=== PATIENT | male | born 1980 | race Caucasian/White ===

== ENCOUNTER → 2018-09-29 | Outpatient (RCR) | payer OTHER ==
--- NOTE | 2018-07-01 11:34 | OT INITIAL EVALUATION ---
SUBJECTIVE: Patient is a 37 year old left hand dominate male referred to OP OT services following extensive left wrist surgery on 05/19/2018 after a work related injury to the left wrist and forearm. The work-related injury occurred in May of 2017 where a 9,000# drill pipe fell onto the patient's left forearm and wrist. Patient has been treated by several providers over the last year and was able to receive surgery this past May for tendon and ligament repair with pinning. Patient was in a hard cast for 6 weeks and has been released to come to therapy. Hard cast was removed on 06/28/2018. Patient is wearing a soft cast. Patient is not to do any pushing or pulling with the left wrist. The area where the pin was removed was covered with a band aid, it looked dry with no visible drainage. Surgical site over the wrist appeared to be healed dry and intact with no drainage present. 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 Patient has not been released for any other treatment than to focus on range of motion of the left hand and wrist. Patient does have discomfort and pain during passive range of motion. Patient to benefit from OT services to help increase functional movement of the left hand in self cares. Short Term Goals 1.Patient will increase AROM of the left wrist extension by 30 degrees in order to complete self cares with the left hand. 2.Patient will increase AROM of the left wrist flexion by 30 degrees in order to complete self-cares with the left hand. 3.Patient will increase radial and ulnar deviation by 15 degrees in order to complete self care with the left hand. 4.Patient will report of a decrease in discomfort and pain of the left wrist to help with performing self cares. PLAN: Plan to see patient 2 times a week for 12 weeks to increase functional use of left hand and to improve independence with ADLs and IADLs and return to work. Plan of care to include ther ex, ther act, modalities-hot/cold pack, paraffin, fluidotherapy, ultrasound, e-stim, iontophoresis Thank you for this referral. If you have any questions, concerns, or comments about this report or plan, please contact me at [phone]. Sondra Gill MS, OTR/L Occupational Therapist Provider Signature Date MTDD
--- NOTE | 2018-07-28 14:46 | OT PROGRESS NOTE ---
SUBJECTIVE: Patient is a 37 year old left hand dominate male referred to OP OT services following extensive left wrist surgery on 05/19/2018 after a work related injury to the left wrist and forearm. The work-related injury occurred in May of 2017 where a 9,000# drill pipe fell onto the patient's left forearm and wrist. Patient has been treated by several providers over the last year and was able to receive surgery this past May for tendon and ligament repair with pinning. Patient has been treated in the clinic for 8 treatment sessions working on increasing AROM. Patient is reporting of pain along the incision spanning 2 inches across. Patient is also reporting of popping with wrist rotation. 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 Extension is returning slowly for movement. Pain has not decreased and is most likely interfering with ROM. Patient is working hard on improving AROM outside of the clinic and is very eager to return back to working. Short Term Goals 1.Patient will increase AROM of the left wrist extension by 30 degrees in order to complete self cares with the left hand. not met 2.Patient will increase AROM of the left wrist flexion by 30 degrees in order to complete self-cares with the left hand. partially met 3.Patient will increase radial and ulnar deviation by 15 degrees in order to complete self care with the left hand. met 4.Patient will report of a decrease in discomfort and pain of the left wrist to help with performing self cares. not met PLAN: Please advise on continuing to work on AROM and when to incorporate strengthening. Thank you for this referral. If you have any questions, concerns, or comments about this report or plan, please contact me at [phone]. Sondra Gill MS, OTR/L Occupational Therapist Provider Signature Date MTDD
--- NOTE | 2018-08-25 15:37 | OT PROGRESS NOTE ---
SUBJECTIVE: Patient is a 37 year old left hand dominate male referred to OP OT services following extensive left wrist surgery on 05/19/2018 after a work related injury to the left wrist and forearm. The work-related injury occurred in May of 2017 where a 9,000# drill pipe fell onto the patient's left forearm and wrist. Patient has been treated by several providers over the last year and was able to receive surgery this past May for tendon and ligament repair with pinning. Patient has been treated in the clinic for 14 treatment sessions working on increasing AROM with the addition of strengthening. Patient is reporting of pain along the incision spanning 2 inches across. 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 = 134# (Age/gender normative= 119.7#) Left=80# (Age/gender normative= 112.9#) Lateral Pinch Right = 31.3# (Age/gender normative= 26.1#) Left= 21.3# (Age/gender normative= 25.6#) 3 Point Pinch Right = 27# (Age/gender normative= 26.2#) Left= 17.3# (Age/gender normative= 25.9#) Sensation: reports that this is back to normal since his surgery Special Test: 9 Hole Peg Test (dexterity) Right= 28 seconds (Age/gender normative= 17.9 seconds) Left= 27seconds (Age/gender normative= 19.4 seconds) ASSESSMENT Patient has made gains in increasing AROM of the left wrist-AROM is close to what the right AROM presents with. Extension is returning slowly for movement. Working on strengthening of the left wrist. Patient can tolerate 10-25# depending on the exercise. Pain has not decreased and is most likely interfering with AROM and strength. Patient is working hard on improving AROM and strength outside of the clinic and is very eager to return back to working. Short Term Goals 1.Patient will increase AROM of the left wrist extension by 30 degrees in order to complete self cares with the left hand. not met 2.Patient will increase AROM of the left wrist flexion by 30 degrees in order to complete self-cares with the left hand. partially met 3.Patient will increase radial and ulnar deviation by 15 degrees in order to complete self care with the left hand. met 4.Patient will report of a decrease in discomfort and pain of the left wrist to help with performing self cares. not met 5. Patient will complete strengthening program. not met PLAN: Please advise on continuing to work on AROM and strengthening. Thank you for this referral. If you have any questions, concerns, or comments about this report or plan, please contact me at [phone]. Sondra Gill MS, OTR/L Occupational Therapist Provider Signature Date MTDD
--- NOTE | 2018-08-31 12:26 | OT PROGRESS NOTE ---
SUBJECTIVE: Patient is a 37 year old left hand dominate male referred to OP OT services following extensive left wrist surgery on 05/19/2018 after a work related injury to the left wrist and forearm. The work-related injury occurred in May of 2017 where a 9,000# drill pipe fell onto the patient's left forearm and wrist. Patient has been treated by several providers over the last year and was able to receive surgery this past May for tendon and ligament repair with pinning. Patient has been treated in the clinic for 15 treatment sessions working on increasing AROM with the addition of strengthening. Patient returned to clinic with updated order to complete strengthening and work hardening on the left hand. Progress note will be sent to surgeon per his request. 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 Focus will now be on strengthening and work hardening. Patient increased weight for lifting and carrying from 20-25# to 45-65# this session. Patient is completing strengthening exercises to increase left hand and wrist strength and improve functional endurance of the left hand and wrist with the plan to return back to work. 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 2.Patient will increase left 3 point pinch by 3# in order to use left hand in work tasks. 3.Patient will complete carrying activities using 75# or more in order to return back to work. 4.Patient will complete lifting activities using 75# or more in order to return back to work. PLAN: Plan to see patient 2 times a week for 6 weeks with the focus on strengthening and work hardening on the left hand. Thank you for this referral. If you have any questions, concerns, or comments about this report or plan, please contact me at [phone]. Sondra Gill MS, OTR/L Occupational Therapist Provider Signature Date MTDD
--- NOTE | 2018-09-30 08:43 | OT PROGRESS NOTE ---
SUBJECTIVE: Patient is a 37 year old left hand dominate male referred to OP OT services following extensive left wrist surgery on 05/19/2018 after a work related injury to the left wrist and forearm. The work-related injury occurred in May of 2017 where a 9,000# drill pipe fell onto the patient's left forearm and wrist. Patient has been treated by several providers over the last year and was able to receive surgery this past May for tendon and ligament repair with pinning. Patient has been treated in the clinic for 22 treatment sessions working on strengthening and work hardening with the goal of return to work at previous job. 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 Focus has been on strengthening and work hardening. Patient ability for weight lifting has fluctuated from session to session on the amount of weight and tolerance due to left wrist pain. Patient is tolerating 20#-45# consistently-he has not been able to tolerate more weight than this. Patient reports a 2/10, which appears to be a high rating for the patient. Patient is completing strengthening exercises to increase left hand and wrist strength and improve functional endurance of the left hand and wrist with the plan to return back to work. 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 Patient is hardworking in and out of the clinic. Patient is eager to return back to work, but his pain has been the limiting factor. 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 not met 2.Patient will increase left 3 point pinch by 3# in order to use left hand in work tasks. partially met 3.Patient will complete carrying activities using 75# or more in order to return back to work. not met 4.Patient will complete lifting activities using 75# or more in order to return back to work. not met PLAN: Please advise on future recommendations for continuing OT services. Thank you for this referral. If you have any questions, concerns, or comments about this report or plan, please contact me at [phone]. Sondra Gill MS, OTR/L Occupational Therapist Provider Signature Date MTDD
== END ==
LOC: OT 07-01 09:38
PROVIDERS: ATTEND Orthopaedic Surgery
DX: Z47.89 Encounter for other orthopedic aftercare (principal)
CPT/HCPCS: 97165; 97168